=== PATIENT | female | born 1975 | race Caucasian/White ===

== ENCOUNTER → 2018-06-17 | Outpatient (CLI) | payer OTHER ==
[~2018-06-17] MED LIST: CEP500 PO; FAM20 PO; IBU200 PO; IBU600 PO; LOR5 PO; PER PO; PHENA200 PO; [UNRECOGNIZED DRUG - REMARK]
--- NOTE | 2018-06-17 16:45 | RADIOLOGY IMAGING REPORT ---
FACILITY: [facility] - [place], [place] PATIENT NAME: BANDAR MUSA : [id number] MR: [id number] V: [id number] EXAM DATE: ORDERING PHYSICIAN: HALEY ESQUIVEL TECHNOLOGIST: Stacy Mendez PROCEDURE:BILATERAL DIGITAL SCREENING MAMMOGRAM WITH CAD ASSISTED INTERPRETATION & 3D TOMOSYNTHESIS COMPARISON:Prior mammograms 03/17/16. INDICATIONS:SCREENING FINDINGS: Dense heterogeneous fibroglandular densities are seen throughout the breasts which can obscure small masses. Just medial to midline on the Right CC view junction of the anterior middle 1/3 there is an area of architectural distortion and increased density best seen on Tomographic slice 11. Spot compression view is recommended for further evaluation. In the upper portion of the Right breast on the Right MLO view middle 1/3 there is an area of vague architectural distortion with several small punctuate calcifications for which Spot compression view is recommended. The remainder of the parenchymal pattern has remained stable. DIAGNOSTIC CATEGORY 0--INCOMPLETE: NEED ADDITIONAL IMAGING EVALUATION. RECOMMENDATIONS: ADDITIONAL MAMMOGRAPHIC VIEWS REQUIRED: RIGHT BREAST. IMPRESSION: BIRADS 0: Incomplete. Additional views of the Right breast is recommended as described. Dictated by: Britney Wilkes M.D. on 06/17/2018 at 9:32 Transcribed by: DANISH on 06/17/2018 at 10:20 Approved by: Britney Wilkes M.D. on 06/17/2018 at 16:44 [facility]
== END ==
LOC: MAMO 00:48
PROVIDERS: ATTEND Advanced Practice Midwife
DX: Z12.31 Encounter for screening mammogram for malignant neoplasm of breast (principal); R92.8 Other abnormal and inconclusive findings on diagnostic imaging of breast
CPT/HCPCS: 77063; 77067

== ENCOUNTER → 2018-07-29 | Outpatient (CLI) | payer OTHER ==
--- NOTE | 2018-07-30 10:05 | RADIOLOGY IMAGING REPORT ---
FACILITY: [facility] - [place] PATIENT NAME: BANDAR MUSA : [id number] MR: [id number] V: [id number] EXAM DATE: ORDERING PHYSICIAN: HALEY ESQUIVEL TECHNOLOGIST: Stacy Mendez PROCEDURE:RIGHT DIGITAL DIAGNOSTIC MAMMOGRAM WITH CAD ASSISTED INTERPRETATION & 3D TOMOSYNTHESIS COMPARISON:Prior mammograms 06/17/18, 03/17/16. INDICATIONS:Further evaluation FINDINGS: The patient returns for Spot compression views in the Right CC & MLO projections. The small area of architectural distortion just medial to midline on the recent Right CC view appeared compressible and apparently represented a summation shadow. The small area of vague architectural distortion in the upper portion of the Right breast on the recent Right MLO view also was fairly compressible and apparently represented a summation shadow. DIAGNOSTIC CATEGORY 2--BENIGN FINDING. RECOMMENDATIONS: ROUTINE MAMMOGRAM AND CLINICAL EVALUATION. IMPRESSION: BIRADS 2: Benign finding. No significant abnormality of the Right breast is seen. Dictated by: Britney Wilkes M.D. on 07/29/2018 at 11:40 Transcribed by: DANISH on 07/30/2018 at 9:30 Approved by: Britney Wilkes M.D. on 07/30/2018 at 10:04 [facility]
== END ==
LOC: US 10:34
PROVIDERS: ATTEND Advanced Practice Midwife
DX: R92.2 Inconclusive mammogram (principal)
CPT/HCPCS: 77061; 77065